=== PATIENT | male | born 1975 | race Caucasian/White ===

== ENCOUNTER → 2019-11-03 | Outpatient (CLI) | payer OTHER, SELFPAY ==
[2019-11-03 17:36] LABS: Absolute Lymphocyte Count 2.29 X10^3/uL (0.83-4.51); Absolute Neutrophil Count 5.2 X10^3/uL (2.0-7.7); Basophil# 0.04 X10^3/uL; Basophil% 0.5 % (0-1); Eosinophil# 0.21 X10^3/uL; Eosinophils% 2.5 % (0-5); Hematocrit 43.7 % (40-54); Lymphocyte # 2.29 X10^3/ul (4.0); Lymphocyte % 27.3 % (19-41); Mean Corpuscular Hgb 29.6 pg (27.0-32.0); Mean Corpuscular Volume 92.4 fL (80-94); Mean Platelet Vol. 10.8 fl (6.2-12.0); Monocyte# 0.68 X10^3/uL; Monocyte% 8.1 % (0-10); NRBC Flagged by Analyzer 0 % (0-5); Neutrophil # 5.15 X10^3/uL (2.7-7.7); Neutrophil % 61.4 % (47-70); Platelet Count 214 K/mm3 (150-450); RBC Distribution Width CV 13.8 % (11.6-14.6); RBC Distribution Width SD 46.9 fl (35.1-43.9); Red Blood Count 4.73 M/mm3 (4.6-6.2); White Blood Count 8.4 K/mm3 (4.4-11.0)
[2019-11-03 18:13] LABS: ALB/GLOB Ratio 1.2 RATIO (0.9-2.4); AST(SGOT) 21 U/L (15-37); Alanine Aminotransfer ALT/SGPT 32 U/L (16-61); Albumin, Serum 4.4 g/dL (3.2-5.0); Alkaline Phosphatase 83 U/L (45-117); Anion Gap 9 (5-15); BUN 17 mg/dL (7-18); BUN/Creat Ratio 14.5 RATIO (10-20); Calcium,Total 9.3 mg/dL (8.5-10.1); Chloride 102 mmol/L (98-107); Cholesterol 168 mg/dL (200); Creatinine, Serum 1.17 mg/dL (0.70-1.30); EST Glomerular Filtration Rate 72 mL/min (>60); Est Glom Filt Rate - Afr Amer 87 mL/min (>60); Globulin 3.8 g/dL (2.2-4.2); Glucose 90 mg/dL (74-106); High Density Lipoprotein 76 mg/dL; Potassium 3.8 mmol/L (3.5-5.1); Protein, Total 8.2 g/dL (6.4-8.2); Sodium Level 137 mmol/L (136-145); Triglycerides 54 mg/dL; Very Low Density Lipoprotein 11 mg/dL (5-40)
== END | disposition home or self-care (01) ==
PROVIDERS: Visit Provider Family Medicine
DX: Z00.01 Encounter for general adult medical examination with abnormal findings (principal); Z82.49 Family history of ischemic heart disease and other diseases of the circulatory system
CPT/HCPCS: 36415; 80053; 80061; 85025

== ENCOUNTER → 2020-07-19 13:09 | Outpatient (CLI) | payer OTHER, SELFPAY ==
[2020-07-19 15:22] LABS: Erythrocyte Sedimentation Rate 2 mm/hr (0-20)
[2020-07-19 15:24] LABS: CRP < 2.90 mg/L (0.0-3.0); Rheumatoid Factor < 10.0 IU/mL (<15)
[2020-07-22 05:10] LABS: CCP IgG Antibodies 9 units (0-19)
[2020-07-22 05:17] LABS: ANTINUCLEAR ANTIBODIES DIRECT Negative (Negative)
== END ==
PROVIDERS: PCP Family Medicine; Referring Provider Family Medicine; Visit Provider Family Medicine
DX: M25.50 Pain in unspecified joint (principal)
CPT/HCPCS: 36415; 85652; 86038; 86140; 86200; 86431

== ENCOUNTER 2020-10-20 18:57 | Emergency (ER) | payer OTHER, SELFPAY ==
[2020-10-20] VITALS (9 sets, daily range): BP systolic 126–145; BP diastolic 83–98; PULSE 81–104; RESP 15–18; TEMP 35.8; O2SAT 95–100; BMI 27.0
[2020-10-20] MEDS: Morphine 4 MG/ML Syringe IV (19:28)
--- NOTE | 2020-10-20 20:00 | RAD_ITS ---
STUDY: X-RAY - LEFT KNEE REASON FOR EXAM: Male, 45 years old. Injury/Pain TECHNIQUE: 2 view(s) of the knee. COMPARISON: None. FINDINGS: Normal visualized distal femur. Normal visualized proximal tibia. A healed fracture deformity of the proximal one third tibial shaft is present. Normal proximal tibiofibular articulation. There is no demonstrated acute fracture. Normal medial femorotibial compartment. Normal lateral femorotibial compartment. Normal patellofemoral articulation. There is no demonstrated joint effusion. The soft tissue structures are unremarkable. RAD/Knee 1 or 2 Views IMPRESSION: No visualized acute process. Healed fracture deformity of the proximal one third fibular shaft. Electronically Signed: Jony Hennessy MD at 20:48 EDT , Service support ,
[2020-10-20] MEDS: Propofol 200 MG/20 ML Vial IV BOLUS (20:30)
--- NOTE | 2020-10-20 20:42 | ED.VIS.LOWEX ---
HPI History of Present Illness HPI Narrative: Patient presents with left knee injury that occurred today. Patient was working on a tractor and someone else accidentally hit the PTO take off which caused the machine to move and hit his leg. Patient states it knocked him to the ground. Patient also complains of pain in his right thigh and sacrum. Patient denies any head injury or loss of consciousness. Patient denies any paresthesias or weakness. Patient states he is unable to move his left knee due to the pain. Patient noticed his left patella was dislocated. Patient describes his pain is constant aching but is sharp with any movement of his left knee. Chief Complaint: Lower Extremity Injury Informant: patient Occured/Mechanism Mechanism/Context: Yes direct blow Onset/Context/Timing Onset: Today Context: Sudden Onset Timing: Continuous Quality of Pain: Sharp and Aching Location: Left knee Worsened by: Movement Relieved by: Rest Associated Symptoms Associated Symptoms: Negative for Parasthesia, Weakness and Loss of Funtion PFSH PFSH no medical history Home Medications hydrocodone-acetaminophen 1 tab PO Q6H PRN PRN 3 Days #10 tablet 10/20/20 [Rx Last Taken Unknown] Allergy/AdvReac Type Severity Reaction Status Date / Time No Known Allergies Allergy Verified 10/20/20 19:00 Surgical History (Updated 10/20/20 @ 20:[address] Miguelangel Murillo DO) History of herniorrhaphy Social History Smoking Status: Never smoker ROS ROS ED Constitutional Constitutional ED: Denies chills or fever(s) Eyes Eyes: Denies blurry vision or change in vision ENT ENT ED: Denies rhinorrhea or sore throat Cardiovascular Cardiovascular: Denies chest pain or palpitations Respiratory/Chest Respiratory/Chest: Reports cough; Denies dyspnea Gastrointestinal Gastrointestinal: Denies nausea or vomiting Genitourinary Genitourinary ED: Denies dysuria or hematuria Musculoskeletal Musculoskeletal: Denies back pain or neck pain Integumentary Denies abscess or rash Neurologic Neurologic: Denies headache(s) or weakness Allergic/Immunologic Allergic/Immunologic ED: Denies mouth swelling or urticaria EXAM Physical Exam Const Vital Signs: 10/20/20 18:59 10/20/20 19:10 10/20/20 19:58 Temperature 96.5 F L Temperature Source Temporal Pulse Rate 97 81 Pulse Rate [1 (Initial Baseline)] Pulse Rate [3] Respiratory Rate 15 18 Respiratory Rate [1 (Initial Baseline)] Respiratory Rate [3] Respiratory Effort Normal Non-Labored Respiratory Depth Normal Respiratory Pattern Normal Blood Pressure 145/98 H 139/89 H Blood Pressure [1 (Initial Baseline)] Blood Pressure [3] Blood Pressure Mean 113 105 Pulse Ox 98 95 Oxygen Delivery Method Room Air Room Air Oxygen Delivery Method [1 (Initial Baseline)] Oxygen Delivery Method [2] Oxygen Delivery Method [3] Oxygen Flow Rate (L/min) Oxygen Flow Rate (L/min) [1 (Initial Baseline)] Oxygen Flow Rate (L/min) [2] Oxygen Flow Rate (L/min) [3] 10/20/20 20:00 10/20/20 20:29 10/20/20 20:30 Temperature Temperature Source Pulse Rate 104 H Pulse Rate [1 (Initial Baseline)] 101 H Pulse Rate [3] 94 Respiratory Rate 16 18 Respiratory Rate [1 (Initial Baseline)] 18 Respiratory Rate [3] 17 Respiratory Effort Respiratory Depth Respiratory Pattern Blood Pressure 142/93 H Blood Pressure [1 (Initial Baseline)] 142/93 H Blood Pressure [3] 130/91 H Blood Pressure Mean Pulse Ox 98 Oxygen Delivery Method Nasal Cannula Oxygen Delivery Method [1 (Initial Baseline)] Nasal Cannula Oxygen Delivery Method [2] Nasal Cannula Oxygen Delivery Method [3] Nasal Cannula Oxygen Flow Rate (L/min) 2 Oxygen Flow Rate (L/min) [1 (Initial Baseline)] 2 Oxygen Flow Rate (L/min) [2] 2 Oxygen Flow Rate (L/min) [3] 2 10/20/20 20:40 10/20/20 20:45 10/20/20 20:50 Temperature Temperature Source Pulse Rate 88 95 94 Pulse Rate [1 (Initial Baseline)] Pulse Rate [3] Respiratory Rate 18 18 18 Respiratory Rate [1 (Initial Baseline)] Respiratory Rate [3] Respiratory Effort Respiratory Depth Respiratory Pattern Blood Pressure 126/83 H 136/93 H 130/91 H Blood Pressure [1 (Initial Baseline)] Blood Pressure [3] Blood Pressure Mean Pulse Ox 100 100 99 Oxygen Delivery Method Nasal Cannula Room Air Room Air Oxygen Delivery Method [1 (Initial Baseline)] Oxygen Delivery Method [2] Oxygen Delivery Method [3] Oxygen Flow Rate (L/min) 2 Oxygen Flow Rate (L/min) [1 (Initial Baseline)] Oxygen Flow Rate (L/min) [2] Oxygen Flow Rate (L/min) [3] Positive well nourished and well developed General Appearance ED: well developed HEENT Reports moist mucous membranes Neck full ROM Resp normal respiratory effort and clear to auscultation bilaterally Cardio regular rate and regular rhythm GI non-tender Palpation: soft Extremity Extremity Narrative: There is deformity of the left knee with the patella dislocated laterally. There is no effusion. Range of motion of the left knee was limited in all motion secondary to pain. There are superficial abrasions over the lower legs bilaterally. There is also tenderness, edema, and ecchymosis over the lateral aspect of the right femur. There is no deformity. There is good range of motion. Neuro oriented x3, CN's II-XII intact bilaterally, moves all extremities and no sensory deficits noted Sensorium / Orientation: alert Psych mental status grossly normal Skin Trauma: abrasion MDM MDM MDM Narrative Medical decision making narrative: Patient was given a dose of morphine. Patient was given a tetanus booster. X-rays of the left knee were obtained. There are 2 views. On my interpretation, there is a dislocation of the patella laterally. There is no acute fracture noted. Radiologist also interpreted the x-ray and reports no acute process. He also notes a healed fracture of the proximal fibula shaft. Patient states that he is still having significant pain despite the morphine. Because of this, I recommended sedation with propofol. I discussed the risks and benefits of sedation with the patient. He is agreeable with this. Patient was given a total of 80 mg of propofol. Patient remained awake and alert and was talking during the procedure. The patella was reduced. Patient tolerated the procedure well. There is laxity with valgus testing on reevaluation. Patient was advised that he most likely tore his medial collateral ligament. Patient was also advised that he may have also torn his medial meniscus and anterior cruciate ligament as well. Repeat x-rays were obtained. There are 2 views. On my interpretation, there is reduction of the patella. There is no acute fracture. Radiologist also interpreted the x-rays and agrees. After x-rays were obtained, patient moved his knee and his patella dislocated again. This was reduced easily. Patient was placed in a knee immobilizer. Pedal pulses were equal bilaterally after application of the knee immobilizer. Patient was given crutches. Patient was given a prescription for Carver. Patient was instructed to ice and elevate the left knee. Patient was instructed to follow-up with Dr. Suarez from orthopedics. Patient was advised that he will likely need surgery and/or physical therapy. Patient understood and was agreeable with the plan. All questions were answered. Radiography Diagnostic Testing: Radiology Impression Knee X-Ray 10/20/20 20:00 IMPRESSION: No visualized acute process. Healed fracture deformity of the proximal one third fibular shaft. Electronically Signed: Jony Hennessy MD at 20:48 EDT , Service support , Knee X-Ray 10/20/20 20:58 IMPRESSION: Negative left knee x-rays. Alignment is anatomic. at 2144 Reported and signed by: Tommy Dean MD Electronically Signed: Tommy Dean MD at 21:43 EDT Tel , Service support , Discharge Plan Triage Chief Complaint: Lower Extremity Injury ED Provider: Miguelangel Murillo Dx/Rx/DC Orders Clinical Impression: Lateral dislocation of patella, Sprain of medial collateral ligament of left knee, initial encounter Instructions: ED Knee Sprain, ED Patellar Dislocation/Subluxation Prescriptions: New hydrocodone-acetaminophen [hydrocodone-acetaminophen] 1 TABLET tablet 1 tab PO Q6H PRN PRN (Reason: Pain) 3 Days Qty: 10 RF: 0 Primary Care Provider: Valerie Daugherty Referrals: Valerie Daugherty MD [Primary Care Provider] - 5-7 Days Tristian Suarez DO [STAFF PHYSICIAN] - 3-5 Days Disposition Disposition: Home, Self Care Discharge Date/Time: 10/20/20 22:23
--- NOTE | 2020-10-20 20:58 | RAD_ITS ---
EXAM: XR LEFT KNEE, 1 OR 2 VIEWS : 1974 CLINICAL INDICATION: Post reduction TECHNIQUE: Frontal and/or lateral views of the left knee. This report was created using [employer] report generation technology. COMPARISON: 10/20/2020 at 1958 hrs. FINDINGS: BONES/JOINTS: Unremarkable. No acute fracture. No subluxation. Normal alignment. Preservation of the joint space. No sclerotic or destructive changes observed. SOFT TISSUES: Unremarkable. No soft tissue swelling or gas. No radiopaque foreign body. RAD/Knee 1 or 2 Views IMPRESSION: Negative left knee x-rays. Alignment is anatomic. at 2144 Reported and signed by: Tommy Dean MD Electronically Signed: Tommy Dean MD at 21:43 EDT Tel , Service support ,
[2020-10-20] MEDS: Diphth,Pertuss(Acell),Tet Vac 0.5 ML Vial IM (21:52)
[2020-10-20] MEDS: HYDROcodone Bitartrate/Apap 5/325 Tablet PO (21:53)
== END 2020-10-20 22:23 | disposition home or self-care (01) ==
PROVIDERS: Emergency Provider Emergency Medicine; PCP Family Medicine
DX: S83.015A Lateral dislocation of left patella, initial encounter (principal); S83.412A Sprain of medial collateral ligament of left knee, initial encounter; Z23 Encounter for immunization; W31.89XA Contact with other specified machinery, initial encounter; Y93.89 Activity, other specified; Y92.89 Other specified places as the place of occurrence of the external cause; Y99.8 Other external cause status
CPT/HCPCS: 27560; 73560; 90471; 90715; 96374; 99285; J7030; A4216

== ENCOUNTER 2020-10-24 11:20 | Emergency (ER) | payer OTHER, SELFPAY ==
[2020-10-24 07:59] VITALS: BMI 27.0
[2020-10-24 11:21] VITALS: BP 132/85; PULSE 73; RESP 16; TEMP 36.6; O2SAT 99; BMI 28.7
--- NOTE | 2020-10-24 11:47 | CT_ITS ---
STUDY: CT LEFT KNEE WITH AND WITHOUT CONTRAST REASON FOR EXAM: Male, 45 years old. Left Posterior knee dislocation RADIATION DOSAGE (If Supplied By Facility): CTDIvol = ( 8.11 ) mGy, DLP = ( 355.76 ) mGycm TECHNIQUE: The patient was scanned in a multi detector CT scanner. Transaxial imaging was performed prior to and following the administration of IV 100mL Isovue-370. Sagittal and coronal images were reconstructed. Individualized dose optimization techniques were used for this CT. COMPARISON: None. FINDINGS: Normal medial femoral condyle and medial tibial plateau. There is preservation of the articular joint space of the medial knee compartment. Normal lateral femoral condyle and lateral tibial plateau. There is preservation of the articular joint space of the lateral knee compartment. Normal proximal tibiofibular articulation. There is no demonstrated abnormal enhancement. The quadriceps tendon is grossly normal. The patellar tendon is grossly normal. Normal Hoffa''s fat pad. Normal arterial structures. Soft tissue swelling of the medial muscle group at the level of the knee joint. Moderate joint effusion. CT/CTA LWR EXTR W/O & W/DYE IMPRESSION: Joint effusion. Soft tissue swelling along the medial aspect of the knee joint and of the overlying medial muscle group. There is good alignment. The arteries are unremarkable. Electronically Signed: Aubrey Dahl MD at 13:19 EDT , Service support ,
--- NOTE | 2020-10-24 11:47 | EKG12_ITS ---
Test Reason : Blood Pressure : / mmHG Vent. Rate : 079 BPM Atrial Rate : 079 BPM P-R Int : 166 ms QRS Dur : 088 ms QT Int : 374 ms P-R-T Axes : 055 034 054 degrees QTc Int : 428 ms Normal sinus rhythm Normal ECG Confirmed by YOLIE HAGER, NEELA ([id number]), managing editor PHILL HUTCHINSON ([id number]) on 10/25/2020 9:13:44 AM Referred By: GIRISH Confirmed By:NEELA URBANO MD
[2020-10-24] MEDS: Morphine 4 MG/ML Syringe IV (11:59)
[2020-10-24] MEDS: Ondansetron 4 MG/2 ML Vial IV (11:59)
[2020-10-24] MEDS: 0.9% Normal Saline 1,000 ML 1000 ML IV (11:59)
[2020-10-24 12:02] VITALS: BP 125/81; PULSE 81
[2020-10-24 12:13] LABS: Absolute Lymphocyte Count 0.81 X10^3/uL (0.83-4.51); Absolute Neutrophil Count 10.9 X10^3/uL (2.0-7.7); Basophil# 0.04 X10^3/uL; Basophil% 0.3 % (0-1); Eosinophil# 0.03 X10^3/uL; Eosinophils% 0.2 % (0-5); Hemoglobin 12.8 g/dL (13.0-16.5); Lymphocyte # 0.81 X10^3/ul (0.83-4.51); Lymphocyte % 6.4 % (19-41); Mean Corpuscular Hgb 28.8 pg (27.0-32.0); Mean Corpuscular Volume 90.1 fL (80-94); Mean Platelet Vol. 10.4 fl (6.2-12.0); Monocyte# 0.69 X10^3/uL; Monocyte% 5.5 % (0-10); NRBC Flagged by Analyzer 0 % (0-5); Neutrophil # 10.91 X10^3/uL (2.7-7.7); Neutrophil % 86.9 % (47-70); Platelet Count 244 K/mm3 (150-450); RBC Distribution Width SD 45.9 fl (35.1-43.9); Red Blood Count 4.44 M/mm3 (4.6-6.2); White Blood Count 12.6 K/mm3 (4.4-11.0)
[2020-10-24 12:24] LABS: Anion Gap 6 (5-15); BUN 17 mg/dL (7-18); BUN/Creat Ratio 14.7 RATIO (10-20); Calcium,Total 9.2 mg/dL (8.5-10.1); Chloride 103 mmol/L (98-107); Creatinine, Serum 1.16 mg/dL (0.70-1.30); EST Glomerular Filtration Rate 72 mL/min (>60); Est Glom Filt Rate - Afr Amer 87 mL/min (>60); Estimated Creatinine Clearance 89.93 ml/min; Glucose 137 mg/dL (74-106); Potassium 4.4 mmol/L (3.5-5.1); Sodium Level 137 mmol/L (136-145)
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
[2020-10-24 15:17] VITALS: BP 123/91; PULSE 98; RESP 16; O2SAT 97
== END 2020-10-24 15:20 | disposition home or self-care (01) ==
PROVIDERS: Emergency Provider Emergency Medicine; PCP Family Medicine
DX: S32.10XA Unspecified fracture of sacrum, initial encounter for closed fracture (principal); S89.92XA Unspecified injury of left lower leg, initial encounter; R55 Syncope and collapse; X58.XXXA Exposure to other specified factors, initial encounter; Y93.89 Activity, other specified; Y92.89 Other specified places as the place of occurrence of the external cause; Y99.8 Other external cause status
CPT/HCPCS: 73706; 80048; 85025; 93005; 96361; 96374; 96375; 99285; J7030; Q9967; A4216; J2405

== ENCOUNTER → 2020-10-28 06:22 | Outpatient (CLI) | payer OTHER, SELFPAY ==
[2020-10-24 11:21] VITALS: BMI 28.7
--- NOTE | 2020-10-28 06:22 | MRI_ITS ---
STUDY: MRI LEFT KNEE REASON FOR EXAM: Male, 45 years old. Knee injury TECHNIQUE: Standardized fat and water weighted pulse sequences were obtained in all 3 orthogonal planes. COMPARISON: Left knee x-ray dated OCTOBER 20, 2020 FINDINGS: The medial joint capsule is completely ruptured with a moderate to large amount of clotted hemorrhage at the rupture site and in the underlying subcutaneous tissues. Medial patellofemoral ligament and the femoral attachment of the medial collateral ligament are also completely torn and retracted. A moderate size joint effusion is present.. The anterior cruciate ligament is also completely torn. The posterior cruciate ligament is mildly swollen with intrasubstance edematous signal compatible with a sprain injury. A mild impaction fracture of the cortex and corner lateral femoral condyle is also with underlying marrow edema. Mild marrow edema is also present in the posterior aspect of the medial tibial plateau. Mild muscle strain injuries of the vastus medialis and lateralis muscles noted. A small cartilaginous fracture of the anterior half and central aspect of the lateral tibial plateau is also present but without displacement of the cartilaginous fragment. Normal medial meniscus. Normal hyaline cartilage of the medial femorotibial compartment. Normal distal semimembranosus, gracilis and semitendinosus tendons. Normal lateral meniscus. Normal hyaline cartilage of the lateral femorotibial compartment. Normal proximal tibiofibular articulation. Normal lateral collateral (fibular) ligament. Normal popliteus tendon. Normal biceps femoris tendon. Normal congruent patellofemoral articulation. Normal hyaline cartilage of the patellofemoral compartment. Normal medial and lateral patellar retinaculum. Normal quadriceps tendon. Normal patellar tendon. Normal Hoffa''s fat pad. MRI/Lower Ext Joint Only (Routine) IMPRESSION: 1. The medial joint capsule is completely ruptured with a moderate to large amount of clotted hemorrhage at the rupture site and in the underlying subcutaneous tissues. Medial patellofemoral ligament and the femoral attachment of the medial collateral ligament are also completely torn and retracted 2. Moderate size joint effusion. 3. Complete tear of the ACL. 4. Mild sprain injury of the posterior cruciate ligament. 5. A mild impaction fracture of the cortex and corner lateral femoral condyle is also with underlying marrow edema. 6. Mild marrow edema is also present in the posterior aspect of the medial tibial plateau. 7. A small cartilaginous fracture of the anterior half and central aspect of the lateral tibial plateau is also present but without displacement of the cartilaginous fragment. 8. Mild muscle strain injuries of the vastus medialis and lateralis muscles noted. Electronically Signed: Jony Hennessy MD at 20:41 EDT , Service support ,
== END ==
PROVIDERS: PCP Family Medicine; Referring Provider Orthopaedic Surgery; Visit Provider Orthopaedic Surgery
DX: S83.105A Unspecified dislocation of left knee, initial encounter (principal); S89.90XA Unspecified injury of unspecified lower leg, initial encounter
CPT/HCPCS: 73721

== ENCOUNTER 2020-11-22 10:49 | Outpatient (RCR) | payer OTHER, SELFPAY ==
--- NOTE | 2020-11-22 14:43 | HP.PTEVAL ---
Patient's Visit Information SUNDEEP VALIENTE is a 45 year old M referred to Physical Therapy by GILSON FRANK with a diagnosis of MCL REPAIR. Date of Evaluation: 11/22/20 Physical Therapist: La Burr PT, Cert MDT - Visit Plan Frequency: 2-3x /Week Duration: 2-4 Months Plan: LEFT KNEE REHAB PER PROTOCOL. CASE CONFERENCE WITH AND TRANSFER OF CARE TO [facility] DPT AND [facility]. (PATIENT MIGHT CONSIDER [facility] DUE TO INS COVERAGE). - Subjective *1 WEEK POST OP TODAY*. 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 TRAVEL IS INVOLVED BY [employer]. NATIONAL TRAVEL. Disability: NO. Present symptoms: BRUISES AND BLISTERS THE BACK OF THE KNEE. PAIN ABOVE AND BELOW THE KNEE CAP. PAIN INSIDE OF KNEE WHERE BRACE IS PUSHING ON INCISION. MID THIGH TO TOES - LEG IS NUMB AND TINLGLY. Present since: 10/20/20. KNEE SX 11/15/20. Pain Scale: WORST 7/10, LEAST 0/10. Currently: 0/10. Commenced as a result of: FARM ACCIDENT. [employer]. WORKING ON FARM EQUIPMENT AND SOMEONE TURNED IT ON. WAS HIT BY MACHINE FROM BOTH SIDES TEARING L MCL AND FX'ING TAILBONE. TORE THE ACL AND MPFL TOO. TOOK SEVERAL HITS TO L LEG AND BACK BY MACHINE TOO BUT PATIENT REPORTS THEY ARE OK. Worse: WORKING IT, STANDING/BEING UPRIGHT. IN THE SHOWER WITHOUT THE BRACE ON. SITTING. Better: PAIN MEDS. ICE. ELEVATION. Disturbed sleep: YES. Previous history/Previous treatment: NO PRIOR INJURY TO L KNEE. Treatment this episode: MCL REPAIR AND (MPFL REPAIR PER PATIENT REPORT) ONE WK AGO 11/15/20 AT [facility] IN [place]. Gait: PATIENT REPORTS HE WAS TOLD BY THE SURGEON NOT TO BE AFRAID TO PUT A LITTLE BIT OF WEIGHT ON IT BUT TO STILL USE THE CRUTCHES. PATIENT REPORTS THE SURGEON TOLD HIM TO GET AGGRESSIVE THERAPY. Accidents: NO. Unexplained weight loss: NO. Imaging: MRI OF KNEE PRIOR TO SX. PMH: UNREMARKABLE. Recent major surgery: NO. PLOF (Prior Level of Function): UNLIMITED. OTHER: PATIENT REPORTS THAT EVEN THOUGH MORE DAMAGE WAS DONE TO THE KNEE, JUST THE MCL AND MPFL WERE REPAIRED IN THIS SURGERY. SURGEON IS CONSIDERING ACL REPAIR IN ABOUT A MONTH OR SO. FOLLOW UP PENDING IN [place] IN ONE WEEK TO HAVE SUTURES REMOVED. PATIENT DENIES ANY COMPLICATIONS FROM SX THAT HE IS AWARE OF. STATES HE THINKS HE OVER-DID IT WITH HIS EX'S INITIALLY AND CAUSED HIMSELF A LOT OF PAIN. TAILBONE HURTS NOW MORE THAN IT DID 2 DAYS AGO SINCE DOING THE EX'S. PATIENT INITIALLY WENT TO [facility] ED. SAW DR. SANTOS, HAD AN MRI AND WAS THEN REFERRED TO A SPECIALIST IN [place]. - Objective THIS PATIENT AMBULATES INDEP'LY INTO PT NWB LLE ON ELDA AXILLARY CRUTCHES X > 300 FEET. HIS IS WITH HIM THROUGH OUT THE EVALUATION. HE LISA A SACRAL DONUT PILLOW WITH HIM AND REQUESTED TO LIE DOWN VS SITTING DURING EVALUATION. HE IS ABLE TO INDEP'LY TRANSFER FROM SIT TO SUPINE AND REVERSE DEMO'ING ABILITY TO LIFT LLE ONTO TABEL WITHOUT UE ASSIST. HE IS WEARING A L KNEE BRACE LOCKED IN EXTENSION BUT HE DEMO'S INDEP ABILITY TO UNLOCK IT TO 30 DEG HOWEVER HE CAN ONLY BEND HIS LEFT KNEE APPROX 20 DEG PASSIVELY WITH GRAVITY ASSIST AND GENTLE THERAPIST OVER-PRESSURE. CURRENT EX'S GIVEN BY SURGEON - ABOUT 200 A DAY: AP'S, A LITTLE PASSIVE ANKLE DORSI FLEX AND PLANTAR FLEX, HAMSTRING SETS X 5 SEC EA, SLR'S HOLDING 5 SEC EA. UNLOCK BRACE AND BEND KNEE. PATIENT DEMONSTRATES AND COMMUNICATES A GOOD UNDERSTANDING OF ALL OF THESE EX'S. RIGHT LE STRENGTH AND ROM WFL. TREATMENT: PATIENT WAS SEEN TODAY FOR REVIEW OF CURRENT HOME EX'S AND GAIT TRAINING TDWB TOLERATED. HE IS ABLE TO BARELY PUT HIS LEFT FOOT DOWN AND DEMO MINIMAL HEEL STRIKE, FOOT FLAT AND TOE OFF PHASES OF GAIT. PATIENT HAS MILD TO MODERATE LEFT LOWER LEG, FOOT AND ANKLE EDEMA BUT UNABLE TO VISUALIZE KNEE DUE TO SRI WRAP TODAY. PATIENTS REPORTS GOOD INCISION INSPECTION WITH SHOWER AND NO SIGNS OF INFECTION. SIGNS OF INFECTION REVIEWED. LL STRENGTH: HIP 3+/5, KNEE EXT 2/5, KNEE FLEX 2/5, ANKLE DORSIFLEX/PLANTAR FLEX 3-/5. - Goals Goal 1:: INDEP AND SAFE GAIT WITH LEAST ASSISTIVE DEVICE AND DEVIATIONS WEIGHT BEARING ALLOWED BY SURGEON ON LEVEL SURFACES AND UP AND DOWN STEPS Goal Time Frame: 8-12 Weeks Goal 2:: INCREASE FUNCTIONAL ROM OF LEFT LE TO EASE ADL'S ALLOWED BY SURGEON/PROTOCOL. Goal Time Frame: 8-12 Weeks Goal 3:: INCREASE FUNCTIONAL STRENGTH OF LEFT LE TO EASE ADL'S ALLOWED BY SURGEON/PROTOCOL Goal Time Frame: 8-12 Weeks Goal 4:: PATIENT WILL BE INDEP WITH A HEP FOR CONTINUED IMPROVEMENT ONCE FORMAL PHYSICAL THERPAY CONCLUDES. Goal Time Frame: 8-12 Weeks - Anticipated Interventions Patient/Client Instruction: Educate patient on: Condition, Plan of Care, Risk Factors For the Purpose of:: To improve self management Therapeutic Exercise to Include: Strength training, Endurance training, Balance training, Coordination, Agility training, Flexibilty training, Gait and locomotor training, Neuromotor development For the Purpose of:: To decrease pain, To increase ROM, To improve muscle performance and motor function, To increase tolerance to activity/condition/position, To improve ability of physical actions for home/community/work/leisure, To improve gait and locomotor functions Thank you for the opportunity to evaluate your patient. For Medicare and Medicare HMO plans, please review the plan of care and approve it. It will need to be FAXED BACK to us at [phone] for Medicare purposes. For Medicare only, by signing this I certify the plan of care. Please let me know if there are questions or concerns regarding this plan of care. Physician Signature: Date:
--- NOTE | 2020-12-13 08:54 | HP.PT.NRP ---
SUNDEEP VALIENTE was seen in my office for initial evaluation on 11/22/20. The following Plan of Care was established for this patient: Initial Frequency: 2-3x /Week Initial Duration: 2-4 Months Patient/Client Instruction: Educate patient on: Condition, Plan of Care, Risk Factors For the Purpose of:: To improve self management Therapeutic Exercise to Include: Strength training, Endurance training, Balance training, Coordination, Agility training, Flexibilty training, Gait and locomotor training, Neuromotor development For the Purpose of:: To decrease pain, To increase ROM, To improve muscle performance and motor function, To increase tolerance to activity/condition/position, To improve ability of physical actions for home/community/work/leisure, To improve gait and locomotor functions This patient was last seen in our office . Pertinent comments regarding their Physical therapy will appear below: PATIENT WAS SEEN FOR EVAL ONLY. I RECEIVED A NOTE STATING THAT WHEN WE CALLED TO SCHEDULE HIM HE STATED HE IS GOING TO [facility] FOR THERAPY HE WAS ABLE TO GET IN SAME DAY WITHOUT WAITING. WILL D/C HIS CHART AT THIS TIME. At this point I will be discontinuing this patient from physical therapy. I would be happy to see this patient again in the future if found appropriate by the physician. Thank you! La Burr, PT, Cert MDT Balance/Gait/Functional tests - Balance/Special Test Scores Lower Extremity Functional Score: 6
== END 2020-11-22 19:00 | disposition home or self-care (01) ==
LOC: PT 10:49
PROVIDERS: PCP Family Medicine
DX: Z98.890 Other specified postprocedural states (principal)
CPT/HCPCS: 97162; 97530

== ENCOUNTER → 2022-10-12 | Outpatient (CLI) | payer OTHER, SELFPAY | END | disposition home or self-care (01) | PROVIDERS: PCP Family Medicine; Visit Provider Family Medicine | DX: R30.0 Dysuria (principal) | CPT/HCPCS: 87077; 87086; 87088; 87186 ==